=== PATIENT | male | born 1945 | race Caucasian/White ===

== ENCOUNTER 2018-03-11 12:41 | Emergency (ER) | payer OTHER ==
[~2018-03-11] VITALS: Ht 180.3 cm; Wt 79.8 kg
[~2018-03-11 12:41] MED LIST: AMLODIPINE BESY10 MG PO; CLOPIDOGREL75 MG PO; LISINOPRIL-HCT1 EACH PO; METOPROLOL SUC100 MG PO; TIZANIDINE HCL4 MG PO
[2018-03-11] MEDS ORDERED: DILTIAZEM HCL 100 ML IV STA (13:02)
[2018-03-11] MEDS ORDERED: DILTIAZEM HCL 5 MG/ML 5 ML VIAL IV ONE (13:15)
[2018-03-11 13:26] LABS: BASOPHILS % 0.4 % (0.0-1.0); EOSINOPHILS # (AUTO) 0.1 (0.0-0.4); EOSINOPHILS % 1.8 % (0.0-6.0); HEMATOCRIT 51.8 % (38.2-49.6); HEMOGLOBIN 17.8 g/dL (14.0-18.0); LYMPHOCYTES # (AUTO) 2.1 (1.0-3.2); LYMPHOCYTES % 37.8 % (18.0-39.1); MEAN CORPUSCULAR HEMOGLOBIN 35.7 pg (28-32); MEAN CORPUSCULAR HGB CONC 34.4 g/dL (31-35); MEAN CORPUSCULAR VOLUME 103.8 fL (81-99); MONOCYTES # (AUTO) 0.5 (0.2-0.8); MONOCYTES % 9.6 % (4.4-11.3); NEUTROPHILS # (AUTO) 2.7 (2.1-6.9); NEUTROPHILS % 50.2 % (38.7-80.0); PLATELET COUNT 179 x10e3/uL (140-360); RED BLOOD COUNT 4.99 x10e6/uL (4.3-5.7); RED CELL DISTRIBUTION WIDTH 13.5 % (11.7-14.4)
[2018-03-11] MEDS ORDERED: DILTIAZEM HCL IV SOLN 125 MG in SODIUM CHLORIDE 0.9% 100 ML IV SCH (13:30)
[2018-03-11 13:41] LABS: INR 0.96; PROTHROMBIN TIME 13.7 seconds (11.9-14.5)
[2018-03-11 13:42] LABS: PARTIAL THROMBOPLASTIN TIME 28.8 seconds (23.8-35.5)
[2018-03-11] MEDS ORDERED: METOPROLOL SUCCINATE 25 MG TAB XL PO SCH (13:45)
[2018-03-11 13:47] LABS: ALBUMIN 3.8 g/dL (3.5-5.0); ALBUMIN/GLOBULIN RATIO 1.4 (0.8-2.0); ANION GAP 16.2 mmol/L (8-16); CALCIUM 9.3 mg/dL (8.4-10.2); CREATININE, SERUM 1.24 mg/dL (0.72-1.25); POTASSIUM 4.2 mmol/L (3.5-5.1)
[2018-03-11 14:08] LABS: CREATINE KINASE MB 2.2 ng/mL (0-5.0); THYROID STIMULATING HORMONE 0.584 uIU/mL (0.350-4.940)
--- NOTE | 2018-03-11 14:18 | Consultation ---
DATE OF CONSULTATION: March 11, 2018 CARDIOLOGY CONSULTATION REASON FOR CONSULTATION: Atrial fibrillation. HISTORY OF PRESENT ILLNESS: Mr. Bustillo is a pleasant 73-year-old man with a history of polycythemia, smoking half a pack per day for over 50 years, reportedly not interested in quitting when asked, history of hypertension, history of leg discomfort, worse with ambulation and relieved by rest limiting moderate exercise, most pronounced to the left more than right lower extremity with no described wounds, presents to the emergency department with atrial fibrillation and rapid ventricular response. Denies chest pain, shortness of breath, lightheadedness, syncope, or other complaints. This was incidentally found on review in the clinic in the past. REVIEW OF SYSTEMS: A 12-system review is negative except for as noted above. ALLERGIES: CODEINE REPORTED. 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 SOCIAL HISTORY: Active smoker for 50 years of half pack a day. Denies drug use. Occasional alcohol use. FAMILY HISTORY: Noncontributory. PHYSICAL EXAMINATION VITALS: Temperature 98.1, heart rate initially 143 and now down to the 80s and atrial fibrillation on telemetry, respiratory rate 20, blood pressure 132/86 and initially was 140/100, O2 sat 96% on room air. GENERAL: In no acute distress. Alert. NECK: No JVD. CHEST: Clear to auscultation. CARDIOVASCULAR: Irregularly irregular rate and rhythm. Normal S1 and S2. No S3 or S4. No murmurs. No rubs. ABDOMEN: Soft and nontender. EXTREMITIES: No edema. Decreased pulses to bilateral dorsalis pedis and posterior tibials. MEDICATIONS: Reviewed. The patient received a bolus of 20 mg IV diltiazem upon arrival to the ER with improvement in his rate control. White blood cells 5.4, hemoglobin 17.8 and platelets 179,000. Chemistries currently pending. Chest x-ray with no acute cardiopulmonary disease. EKG shows atrial fibrillation with rapid ventricular response, possible anterior infarct, age undetermined, left axis deviation. ASSESSMENT 1. Atrial fibrillation with rapid ventricular response, new diagnosis. 2. Hypertension. 3. Active smoker. 4. Intermittent claudication affecting left more than right lower extremity. 5. Erythrocytosis. PLAN: Discussed indications, alternatives, risks, and benefits for management of thromboembolus with anticoagulation, vitamin K, antagonist versus new oral anticoagulants were discussed, including the alternatives and differences likely of angina with Eliquis discussed, and availability of Pradaxa as well as warfarin discussed. The patient agrees with opting for Eliquis at this point as an initial strategy in addition to initiating rate control strategy with beta renzo. His preference for further outpatient workup is taken into account. We have arranged for outpatient followup early next week. Further testing to be performed in the clinic. Job#: [id number] DANIEL
--- NOTE | 2018-03-11 14:18 | Diagnostic Imaging Report ---
EXAM: XR CHEST 2 VIEWS DATE: 03/11/2018 1:00 PM INDICATION: afib COMPARISON: None FINDINGS: Lines and Tubes: None Heart and Mediastinum: No acute cardiomediastinal findings. Lungs and Pleura: No significant pleural effusion, pneumothorax, or focal consolidation. Minimal opacities in the lung bases statistically represent atelectasis, however, infectious process could have a similar appearance. Bones and Soft Tissues: No acute findings. IMPRESSION: 1. No acute cardiopulmonary findings. Signed by: Dr. Timbo Claire MD on 03/11/2018 2:14 PM
[2018-03-11 14:31] LABS: BILIRUBIN,URINE 1+ (NEGATIVE); CLARITY,URINE HAZY (CLEAR); COLOR,URINE YELLOW (YELLOW); KETONES,URINE NEGATIVE (NEGATIVE); LEUKOCYTE ESTERASE ,URINE NEGATIVE (NEGATIVE); NITRITE,URINE NEGATIVE (NEGATIVE); PROTEIN,URINE DIPSTICK TRACE (NEGATIVE); URINE UROBILINOGEN 0.2 mg/dL (0.2 - 1)
[2018-03-11 14:37] LABS: AMPHETAMINES SCREEN,URINE NEGATIVE (NEGATIVE); BENZODIAZEPINES SCREEN,URINE NEGATIVE (NEGATIVE); PHENCYCLIDINE SCREEN,URINE NEGATIVE (NEGATIVE)
[2018-03-11 14:52] LABS: AMORPHOUS SEDIMENT,URINE FEW (FEW); BACTERIA,URINE MODERATE /HPF; EPITHELIAL CELLS,URINE RARE /LPF; MUCUS,URINE MANY (RARE); RBC,URINE 0-5 /HPF (0-5)
[2018-03-11 15:01] VITALS: BP 139/88
[2018-03-11] MEDS ORDERED: APIXABAN 5 MG TABLET PO SCH (17:00)
== END 2018-03-11 15:20 | disposition home or self-care (01) ==
LOC: ER 12:41
DX: I48.91 Unspecified atrial fibrillation (principal); I10 Essential (primary) hypertension; I73.9 Peripheral vascular disease, unspecified; F17.210 Nicotine dependence, cigarettes, uncomplicated
CPT/HCPCS: 36415; 71046; 80053; 80307; 81001; 82550; 82553; 84443; 84484; 85025; 85610; 85730; 93005; 99284; J7050

== ENCOUNTER → 2018-03-23 | Outpatient (CLI) | payer OTHER ==
[~2018-03-23] MED LIST changes: +REGADENOSON 0.4 MG/5 ML SYR IV ONE
--- NOTE | 2018-03-23 18:58 | Cardiology Report ---
DATE OF STUDY: March 23, 2018 MYOCARDIAL PERFUSION LEXISCAN STRESS TEST PROCEDURE INDICATION: Abnormal EKG, chest pain and atrial fibrillation. INTERPRETING AND SUPERVISING PHYSICIAN: Tao Mejia MD, interventional cardiology. INTERPRETATION: At rest, heart rate was 105. Blood pressure 133/95. Resting EKG shows atrial fibrillation with left axis deviation. After Lexiscan was administered, the heart rate leila to 150 beats per minute and blood pressure increased to 158/90. Atrial fibrillation persisted throughout stress and recovery. No significant ST abnormalities were noted. No other arrhythmias were noted. Myocardial perfusion reveals normal rest and stress perfusion. Gated images demonstrated low normal left ventricular systolic function with left ventricular ejection fraction more than 50% by visual estimate and normal regional wall motion. CONCLUSION 1. Normal hemodynamic response to Lexiscan stress. 2. Normal electrocardiographic response to Lexiscan stress. 3. Normal myocardial perfusion at rest and stress. 4. Preserved left ventricular systolic function with LVEF of 50%. Job#: [id number]
== END ==
LOC: NM 09:38
PROVIDERS: ATTEND Internal Medicine Cardiovascular Disease
DX: R07.9 Chest pain, unspecified (principal); I27.9 Pulmonary heart disease, unspecified; I48.0 Paroxysmal atrial fibrillation
CPT/HCPCS: 78452; 93017; A9502; J2785

== ENCOUNTER → 2018-06-08 | Day surgery (SDC) | payer MEDICARE ==
[2018-06-07 11:34] LABS: BASOPHILS % 0.6 % (0.0-1.0); EOSINOPHILS # (AUTO) 0.1 (0.0-0.4); EOSINOPHILS % 1.8 % (0.0-6.0); HEMATOCRIT 53.8 % (38.2-49.6); HEMOGLOBIN 19.3 g/dL (14.0-18.0); LYMPHOCYTES # (AUTO) 2.5 (1.0-3.2); LYMPHOCYTES % 48.3 % (18.0-39.1); MEAN CORPUSCULAR HEMOGLOBIN 36.3 pg (28-32); MEAN CORPUSCULAR HGB CONC 35.9 g/dL (31-35); MEAN CORPUSCULAR VOLUME 101.3 fL (81-99); MONOCYTES # (AUTO) 0.6 (0.2-0.8); MONOCYTES % 11.2 % (4.4-11.3); NEUTROPHILS # (AUTO) 1.9 (2.1-6.9); NEUTROPHILS % 37.9 % (38.7-80.0); PLATELET COUNT 153 x10e3/uL (140-360); RED BLOOD COUNT 5.31 x10e6/uL (4.3-5.7); RED CELL DISTRIBUTION WIDTH 13.8 % (11.7-14.4)
[2018-06-07 11:54] LABS: INR 0.9; PARTIAL THROMBOPLASTIN TIME 27.9 seconds (23.8-35.5)
[2018-06-07 12:00] LABS: ALBUMIN 3.5 g/dL (3.5-5.0); ANION GAP 17.1 mmol/L (8-16); CALCIUM 10.6 mg/dL (8.4-10.2); CHOL/HDL RATIO 3.2 (3.9-4.7); CREATININE, SERUM 1.42 mg/dL (0.72-1.25); POTASSIUM 4.1 mmol/L (3.5-5.1)
[~2018-06-08] VITALS: Ht 180.3 cm; Wt 74.8 kg
[2018-06-08] VITALS (22 sets, daily range): BP systolic 119–183; BP diastolic 81–111
[~2018-06-08] MED LIST changes: +ASPIRIN 325 MG TAB ONE; +ATROPINE SULFATE 0.1 MG/ML 10ML SYR ONE; +CLOPIDOGREL BISULFATE 75 MG TAB ONE; +ELIQUIS PO; +FENTANYL CITRATE/PF 100MCG/2 ML INJ ONE; +FUROSEMIDE40 MG PO; +HEPARIN SOD (PORCINE) 1000 UNIT/ML 30ML ONE; +HEPARIN SOD/SOD CHLORIDE 2,000 ML ONE; +HYDRALAZINE HCL 20 MG/ML VIAL ONE; +IOPAMIDOL 300MG/ML 100 ML INFUS..BTL IV ONE; +LIDOCAINE HCL 2% LOCAL 20 ML VIAL ONE; +LISINOPRIL10 MG PO; +METOPROLOL TART50 MG PO; +METOPROLOL TARTRATE 50 MG TAB PO ONE; +MIDAZOLAM HCL 2 MG/2 ML VIAL ONE; +MORPHINE SULFATE INJ 4 MG/ML INJ 1ML ONE; +NITROGLYCERIN/D5W 200 MCG/ML 250 ML ONE; +PROTAMINE SULFATE 10 MG/ML 5 ML VIAL ONE; -REGADENOSON 0.4 MG/5 ML SYR IV ONE; +SODIUM CHLORIDE 0.9% 1000ML 1,000 ML ONE; +TRAZODONE HCL50 MG PO; +VERAPAMIL HCL 2.5 MG/ML 2 ML VIAL ONE
--- OUTSIDE RECORDS SUMMARY | 2018-06-08 07:41 | XMS REPORT ---
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 Allergies, Adverse Reactions, Alerts This patient has no known allergies or adverse reactions. Medications This patient has no known medications. Results Test Description Test Time Test Comments Text Results Atomic Results Result Comments Stress Test - Treadmill ONLY 2018-03-23 18:33:00 [place] [address] Patient Name : MELINDA CHRISTOPHER MR #: [id number] : 1945 Age/Sex: 73/M Adm Physician : TAO DOBSON MD Admit Date : Location : [place] Room/Bed : REPORT: Cardiology Report DATE OF STUDY: March 23, 2018 MYOCARDIAL PERFUSION LEXISCAN STRESS TEST PROCEDURE INDICATION: Abnormal EKG, chest pain and atrial fibrillation. INTERPRETING AND SUPERVISING PHYSICIAN: Tao Mejia MD, interventional cardiology. INTERPRETATION: At rest, heart rate was 105. Blood pressure 133/95. Resting EKG shows atrial fibrillation with left axis deviation. After Lexiscan was administered, the heart rate leila to 150 beats per minute and blood pressure increased to 158/90. Atrial fibrillation persisted throughout stress and recovery. No significant ST abnormalities were noted. No other arrhythmias were noted. Myocardial perfusion reveals normal rest and stress perfusion. Gated images demonstrated low normal left ventricular systolic function with left ventricular ejection fraction more than 50% by visual estimate and normal regional wall motion. CONCLUSION 1. Normal hemodynamic response to Lexiscan stress. 2. Normal electrocardiographic response to Lexiscan stress. 3. Normal myocardial perfusion at rest and stress. 4. Preserved left ventricular systolic function with LVEF of 50%. Job#: [id number] Signature Date Dictated By: TAO COLES MD Transcribed By: EDS on 03/23/18 <Electronically signed by TAO COLES MD><<Signature on File>>03/24/18 3927 COPY TO: CHEST 2 VIEWS 2018-03-11 14:13:00 [place] [address] Patient Name: MELINDA CHRISTOPHER MR #: [id number] : 1945 Age/Sex: 73/M Req #: [id number] Adm Physician: Ordered by: KISHAN YAÑEZ MD Report #: [id number] Location: ER Room/Bed: Procedure: [id number] DX/CHEST 2 VIEWS Exam Date: 03/11/18 Exam Time: 1345 REPORT STATUS: Signed EXAM: XR CHEST 2 VIEWS DATE: 03/11/2018 1:00 PM I NDICATION: afib COMPARISON: None FINDINGS: Lines and Tubes: None Heart and Mediastinum: No acute cardiomediastinal findings. Lungs and Pleura: No significant pleural effusion, pneumothorax, or focal consolidation. Minimal opacities in the lung bases statistically represent atelectasis, however, infectious process could have a similar appearance. Bones and Soft Tissues: No acute findings. IMPRESSION: 1. No acute cardiopulmonary findings. Signed by: Dr. Tk Claire MD on 03/11/2018 2:14 PM Dictated By: TK CLAIRE MD 1414 Transcribed By: FREDIS on 03/11/181413 COPY TO: KISHAN YAÑEZ MD
--- NOTE | 2018-06-08 12:30 | NUR ---
Bedside report received from Ketty Crowell RN. Alert oriented and appropriate, PERRLA, respirations even and unlabored to room air. Pedal pulses- Right PT 2+, Left PT doppler, Kiel. DP 2+, cap fill brisk < 3 sec. Skin warm and dry, IV 20g to left hand healthy. VSS, patient is in Atrial Fibrillation. Hydralazine 10mg IV given for elevated blood pressure of 183/[address] Mejia's order.
--- NOTE | 2018-06-08 13:00 | NUR ---
C/O chronic back pain 09/02. VSS, no s&s of bleeding noted. Morphine 4mg IV given per Dr. Mejia's order.
--- NOTE | 2018-06-08 13:15 | NUR ---
ACT 221, will continue to monitor.
--- NOTE | 2018-06-08 13:35 | NUR ---
Continuous ooze noted from right femoral sheath, VSS, no change in pedal pulses. Notified Dr. Mejia, order rec'd to give Protamine 25mg IV now. Will continue to monitor.
--- NOTE | 2018-06-08 14:15 | NUR ---
ACT 135, Dr. Mejia notified, ok to remove sheath and hold manual pressure.
--- NOTE | 2018-06-08 14:17 | NUR ---
BP 169/114, Hydralazine 10mg IV given as ordered.
--- NOTE | 2018-06-08 14:25 | NUR ---
Right femoral artery sheath pulled per protocol, manual pressure held x20 minutes.
--- NOTE | 2018-06-08 14:45 | NUR ---
Manual pressure held x20 minutes, hemostasis obtained. Report given to Moe Colmenares RN.
--- NOTE | 2018-06-10 10:24 | Operative Report ---
DATE OF PROCEDURE: PROCEDURES PERFORMED 1. Catheter placement in the aorta and abdominal aortogram. 2. Selective lower extremity angiography, bilateral. 3. Third-order catheter placement from right common femoral artery to left common femoral artery. 4. Additional 3rd-order catheter placement from right common femoral artery to left popliteal artery. 5. Left superficial femoral artery and popliteal drug-eluting balloon angioplasty. 6. Left superficial femoral artery ostial stent with a 6.0 x 120 LifeStent. 7. CSI atherectomy with 1.5 Solid [place] of the left superficial femoral artery. 8. Left external iliac artery drug-eluting balloon percutaneous transluminal angioplasty. PROCEDURE COMPLICATIONS: None. ESTIMATED BLOOD LOSS: Less than 15 mL. PROCEDURE SUMMARY: After consent was obtained, the patient was prepped and draped in a sterile fashion. The right femoral site was locally infiltrated with 2% lidocaine. With the micropuncture kit, access was obtained to the right common femoral artery, and an Omni Flush catheter was positioned in the distal descending abdominal aorta confirming abdominal and iliac findings. Additional selective lower extremity angiography was performed to each bilateral lower extremity from the left common femoral artery and left popliteal artery as well as from the right external iliac artery catheter positions. Angiography was selectively performed to each bilateral lower extremity. After confirmation of anatomic findings as described below, it was decided to proceed with intervention, as will be described in the following paragraph. ANGIOGRAPHIC FINDINGS: The infrarenal abdominal aorta has luminal irregularities and patent renal arteries with iliac vessels with moderate to severe disease. The right common iliac artery has 30% stenosis. The left common iliac artery has 40% stenosis. The right common femoral artery has 50% stenosis. The left external iliac artery has 70% concentric stenosis which was treated as will be described below with TRUCK DRIVER FLATBED using drug-eluting balloon. The left common femoral artery has 50% stenosis. The right femoral artery has a patent stent with 70% in-stenosis restenosis. The right anterior tibial is patent. The right peroneal artery is 100% occluded. The right posterior tibial is patent. The left SFA has 80% ostial, 70% mid in-stent restenosis and 99% distal stenosis. There are a patent left anterior tibial, left TP trunk, left peroneal artery and an occluded posterior tibial throughout. INTERVENTION PROCEDURE: After crossing the areas of stenosis of the SFA and wire positioned in the distal anterior tibial, maintaining an ACT of over 250 and with aspirin and Plavix preloading, predilatation was performed of the areas of stenosis after initial CSI atherectomy using a 1.5 Solid [place] at 60,000 and 90,000 r.p.m. passes. Predilatation was performed with a 4.0 balloon followed by serial Lutonix drug-eluting balloon inflations of 5.0 x 220 and 6.0 x 220 to treat the full extent of the SFA. At the end of this procedure, it was noted that complex dissection of the ostial SFA was observed for which a 6.0 x 120 LifeStent self-expanding stent was deployed successfully treating this area with no residual dissections or perforations, 0% residual stenosis and JENELLE-3 flow across the target lesion. The left external iliac artery was treated with a 7.0 x 60 drug-eluting balloon Lutonix to 9 mm of pressure with excellent angiographic results, less than 30% stenosis. No flow-limiting dissection, no perforation, and JENELLE-3 flow. CONCLUSIONS: Left external iliac artery drug-eluting balloon TRUCK DRIVER FLATBED with 7.0 x 60 Lutonix balloon and left SFA CSI atherectomy and drug-eluting balloon TRUCK DRIVER FLATBED of left SFA into proximal popliteal. Ostial stent of the left SFA with 6.0 x 120 LifeStent. RECOMMENDATIONS: Staged intervention to the right lower extremity at a later date. Aspirin and Plavix. Job#: [id number]
== END | disposition home or self-care (01) ==
LOC: CATH LAB 07:39
PROVIDERS: ATTEND Internal Medicine Cardiovascular Disease
DX: I70.213 Atherosclerosis of native arteries of extremities with intermittent claudication, bilateral legs (principal); I70.92 Chronic total occlusion of artery of the extremities; I48.0 Paroxysmal atrial fibrillation; I20.9 Angina pectoris, unspecified; I11.0 Hypertensive heart disease with heart failure; E78.5 Hyperlipidemia, unspecified; Z95.820 Peripheral vascular angioplasty status with implants and grafts; Z72.0 Tobacco use; Z88.6 Allergy status to analgesic agent; Z01.810 Encounter for preprocedural cardiovascular examination; Z01.812 Encounter for preprocedural laboratory examination; Z79.02 Long term (current) use of antithrombotics/antiplatelets; Z79.82 Long term (current) use of aspirin
CPT/HCPCS: 36415; 37220; 37227; 75625; 75716; 80053; 80061; 83036; 85025; 85610; 85730; 93005; C1724; C1725; C1769 ×2; C1876; C1887; C2623 ×3; J0360; J1644; J2001; J2250; J2270; J2720; J7030; Q9967; 36247; 37186; 37222

== ENCOUNTER → 2018-12-02 | Outpatient (CLI) | payer MEDICARE ==
[~2018-12-02] MED LIST changes: -ASPIRIN 325 MG TAB ONE; -ATROPINE SULFATE 0.1 MG/ML 10ML SYR ONE; -CLOPIDOGREL BISULFATE 75 MG TAB ONE; -FENTANYL CITRATE/PF 100MCG/2 ML INJ ONE; -HEPARIN SOD (PORCINE) 1000 UNIT/ML 30ML ONE; -HEPARIN SOD/SOD CHLORIDE 2,000 ML ONE; -HYDRALAZINE HCL 20 MG/ML VIAL ONE; -IOPAMIDOL 300MG/ML 100 ML INFUS..BTL IV ONE; -LIDOCAINE HCL 2% LOCAL 20 ML VIAL ONE; -METOPROLOL TARTRATE 50 MG TAB PO ONE; -MIDAZOLAM HCL 2 MG/2 ML VIAL ONE; -MORPHINE SULFATE INJ 4 MG/ML INJ 1ML ONE; -NITROGLYCERIN/D5W 200 MCG/ML 250 ML ONE; -PROTAMINE SULFATE 10 MG/ML 5 ML VIAL ONE; -SODIUM CHLORIDE 0.9% 1000ML 1,000 ML ONE; -VERAPAMIL HCL 2.5 MG/ML 2 ML VIAL ONE
--- NOTE | 2018-12-02 09:50 | Diagnostic Imaging Report ---
EXAMINATION: CHEST 2 VIEWS INDICATION: COPD, shortness of breath COMPARISON: Chest radiograph of 03/11/2018 FINDINGS: LINES/TUBES:None LUNGS:The lungs are hyperinflated. No focal consolidation or pulmonary edema. PLEURA:No pleural effusion or pneumothorax. MEDIASTINUM:The cardiomediastinal silhouette appears normal in size and shape. Extensive atherosclerotic calcifications of the thoracic aorta. BONES/SOFT TISSUES:No acute osseous injury. Degenerative changes of the visualized spine. ABDOMEN:No free air under the diaphragm. IMPRESSION: No focal pneumonia or pulmonary edema. Signed by: Nilsa Bryant MD on 12/02/2018 9:47 AM
== END ==
LOC: CARD 08:45
PROVIDERS: ATTEND Family Medicine
DX: J44.1 Chronic obstructive pulmonary disease with (acute) exacerbation (principal); I70.208 Unspecified atherosclerosis of native arteries of extremities, other extremity
CPT/HCPCS: 71046; 93925

== ENCOUNTER → 2018-12-06 | Outpatient (CLI) | payer MEDICARE ==
[~2018-12-06] MED LIST changes: +ALBUTEROL SULF 0.083% NEB SOLN 3 ML NEB ONE
--- NOTE | 2018-12-07 16:22 | Pulmonary Function Test ---
DATE OF STUDY: REFERRING PHYSICIAN: Patient of Dr. Pawan Bae. FINDINGS: Restrictive spirometry. Forced vital capacity 2.97 L, 65% of predicted. FEV1 2.08 L, 62%. FEV1/FVC ratio 70%. IUK57-83 of 45%. There is no significant improvement following inhalation of bronchodilators. There is borderline improvement in the UFK64-03. Lung volumes are reduced. Total lung capacity 4.41 L, 60% of predicted. Diffusion capacity is moderately reduced, 21.26, 76% predicted. Findings consistent with restrictive pulmonary disease with questionable improvement in JFZ17-07 following inhalation dilators. Restriction may be secondary to morbid obesity, congestive heart failure, chest wall disease, neuromuscular disease, pleural disease, parenchymal pulmonary disease, diaphragmatic disease, chest wall disease. Clinical correlation required. MD LONNY Mojica/MODL /[id number]
== END ==
LOC: RESP 08:35
PROVIDERS: ATTEND Family Medicine
DX: J44.1 Chronic obstructive pulmonary disease with (acute) exacerbation (principal); I70.208 Unspecified atherosclerosis of native arteries of extremities, other extremity

== ENCOUNTER → 2019-11-15 | Day surgery (SDC) | payer MEDICARE, OTHER ==
[2019-11-10 11:29] LABS: BASOPHILS % 0.6 % (0.0-1.0); EOSINOPHILS # (AUTO) 0.2 (0.0-0.4); EOSINOPHILS % 3.6 % (0.0-6.0); HEMATOCRIT 50.8 % (38.2-49.6); HEMOGLOBIN 17.7 g/dL (14.0-18.0); LYMPHOCYTES # (AUTO) 2.9 (1.0-3.2); LYMPHOCYTES % 44.8 % (18.0-39.1); MEAN CORPUSCULAR HEMOGLOBIN 36.5 pg (28-32); MEAN CORPUSCULAR HGB CONC 34.8 g/dL (31-35); MEAN CORPUSCULAR VOLUME 104.7 fL (81-99); MONOCYTES # (AUTO) 0.9 (0.2-0.8); NEUTROPHILS # (AUTO) 2.4 (2.1-6.9); NEUTROPHILS % 36.8 % (38.7-80.0); PLATELET COUNT 170 x10e3/uL (140-360); RED BLOOD COUNT 4.85 x10e6/uL (4.3-5.7); RED CELL DISTRIBUTION WIDTH 13.3 % (11.7-14.4)
[2019-11-10 11:41] LABS: INR 1.11
[2019-11-10 11:51] LABS: ALBUMIN 3.8 g/dL (3.5-5.0); ALBUMIN/GLOBULIN RATIO 1.2 (0.8-2.0); ANION GAP 13.3 mmol/L (8-16); CALCIUM 10.8 mg/dL (8.4-10.2); CREATININE, SERUM 1.81 mg/dL (0.72-1.25); POTASSIUM 4.3 mmol/L (3.5-5.1)
[2019-11-10 14:40] LABS: CHOL/HDL RATIO 3.9 (3.9-4.7)
[~2019-11-15] VITALS: Ht 180.3 cm; Wt 70.3 kg
[2019-11-15] VITALS (12 sets, daily range): BP systolic 107–178; BP diastolic 50–91
[~2019-11-15] MED LIST changes: -ALBUTEROL SULF 0.083% NEB SOLN 3 ML NEB ONE; +ASPIRIN 325 MG TAB ONE; +CLOPIDOGREL BISULFATE 75 MG TAB ONE; +FENTANYL CITRATE/PF 100MCG/2 ML INJ ONE; +HEPARIN SOD (PORCINE) 1000 UNIT/ML 30ML ONE; +HEPARIN SOD/SOD CHLORIDE 2,000 ML ONE; +IOPAMIDOL 300MG/ML 100 ML INFUS..BTL IV ONE; +LIDOCAINE HCL 2% LOCAL 20 ML VIAL ONE; +MIDAZOLAM HCL 2 MG/2 ML VIAL ONE; +NITROGLYCERIN/D5W 200 MCG/ML 250 ML ONE; +SODIUM CHLORIDE 0.9% 1000ML 1,000 ML ONE
--- NOTE | 2019-11-15 08:30 | NUR ---
0830prepped and ready for le angio Dr Mejia rm #9 Report ahndoff to Ketty RN ds/rn
--- NOTE | 2019-11-15 10:00 | NUR ---
1000Received pt to room #9,bedside report received from Ketty MAHARAJ. Alert oriented and appropriate, PERRLA, respirations even and unlabored to room air. Pulses x4 extremities equal and strong. Pedal pulses PT/DP x4 left DP and marked. Cap fill brisk < 3 sec.Left groin site manual PP present.For dc at 2pm. Skin warm and dry integrity appears . IV 20g to left hand at 75cchr presents healthy w/o s/s of infiltration or complaint. Abdomen soft and supple. pt offered toileting, denies need to urinate or defecate. No personal affects with patient. No family Needs family Needs med Transport booked. Pt and family verbalizes understanding of POC. Currently w/o complaint of pain or need. ds/astrid
--- NOTE | 2019-11-15 10:43 | NUR ---
1043 notified house Supv. Mynor Pascual Attempting to obtain Auth Code [facility] [place] [facility] ([phone])/[facility] [phone], 2nd choice [facility] [phone] groin No gross issues pain pallor pressure or dysrhythmia. do/astrid
--- NOTE | 2019-11-15 11:37 | Operative Report ---
DATE OF PROCEDURE: SURGEON: Tao Cosme MD STUDY: Peripheral angiography and possible intervention. PROCEDURE INDICATION: Critical limb ischemia with life-limiting claudication affecting right more than left lower extremity and worsening symptoms in the setting of underlying known peripheral arterial disease. PROCEDURES PERFORMED: 1. Abdominal aortogram. 2. Selective lower extremity angiography, bilateral. 3. Catheter placement in the aorta. 4. Third-order catheter placement from left femoral artery to right femoral artery. 5. Manual pressure hemostasis. 6. Ultrasound-guided access. 7. Moderate sedation with fentanyl and Versed. PROCEDURE COMPLICATIONS: None. ESTIMATED BLOOD LOSS: Less than 15 mL. PROCEDURE SUMMARY: After consent was obtained, the patient was prepped and draped in sterile fashion. The left femoral site was locally infiltrated with 2% lidocaine and access was obtained using micropuncture kit and a short 6-Namibian sheath was placed ultrasound-guided access. An Omni Flush catheter was positioned in the abdominal aorta and angiography reveals a 70% to 80% stenosis of the left renal artery. The right renal artery was not fully well visualized, however, seems patent overall. Heavy calcifications noted across the spectrum of the vessels evaluated with infrarenal aorta and areas of less than 50% stenosis throughout. The right common iliac artery has 50% stenosis. The left common iliac artery has 60% stenosis. Both internal iliac arteries are patent. The right external iliac artery has less than 50% stenosis. The left external iliac artery has 60% stenosis. Additional selective angiography of both lower extremities was performed with the following findings. Once the catheter advancement to the femoral artery on the right, the following findings were noted. The right common femoral artery has 95% stenosis in the mid segment with heavy calcifications and eccentric morphology and distal 100% calcific occlusion. The profunda femoris and the proximal mid right femoral artery reconstitutes via collaterals. After short-segment, the right proximal femoral artery was again observed to be occluded 100% with additional calcific disease. Distal to this, there was reconstitution again and there was a stent which has 90% in-stent restenosis. The right popliteal artery has less than 50% stenosis. Three-vessel runoff via anterior tibial peroneal and posterior tibial are observed with 60% diffuse calcific disease across the lvroz-zce-cmep vessels. The left common femoral artery has 70% diffuse stenosis. The left profunda femoris artery was patent. The left SFA has two stents. The first stent has 60% in-stent restenosis. In between the two stents, there is 95% stenosis. The second stent was patent after which there was 90% stenosis of the distal left SFA. The left popliteal artery has 50% stenosis. There were three-vessel runoff with diffuse severe 60% to 70% disease across the left anterior tibial, left TP trunk, left peroneal artery, and left posterior tibial artery. CONCLUSION: Severe multivessel peripheral arterial disease. RECOMMEND: Evaluation for right femoral-popliteal bypass and possible right common femoral artery atherectomy as outpatient at a later date. Bedrest. IV fluid. MD DAYO Mayes/DAMIAN /[id number]
--- NOTE | 2019-11-15 12:00 | NUR ---
Dianne Zurita at [facility].Ambulance booked Pickup at 2pm [facility] ambulance for medical transport home s/p no fix, peripheral angio for claudication, Dr Mejia for f/o Surgical evaluation MD office to coordinate DC planning completed ds/rn
--- NOTE | 2019-11-15 14:00 | NUR ---
1400-[facility] Discharge Nursing Note- Pt meets DC criteria. Left groin assessed for s/s of complication and presence of hematoma. s/p ambulated to void in bathroom w/o incident. Skin warm, dry, no discolor, and pulses present. IV removed from left hand. Distal tip appears intact. VS WNL. Pt denies pain, sob, or need at this time. No Family at bedside. Medical transport to home via [facility] ambulance.Handoff completed to BLS team. Review of discharge paperwork and follow up instructions with pt verbalized understanding. Pt on stretcher transported to ED [place] w/o incident with DC paperwork in hand.Aware of importance of f/o care. back to baseline orientation. ds/rn
== END | disposition home or self-care (01) ==
LOC: CATH LAB 07:22
PROVIDERS: ATTEND Internal Medicine Cardiovascular Disease
DX: I70.213 Atherosclerosis of native arteries of extremities with intermittent claudication, bilateral legs (principal); Z95.820 Peripheral vascular angioplasty status with implants and grafts; I20.9 Angina pectoris, unspecified; I48.0 Paroxysmal atrial fibrillation; I10 Essential (primary) hypertension; E78.5 Hyperlipidemia, unspecified; F17.210 Nicotine dependence, cigarettes, uncomplicated; Z88.6 Allergy status to analgesic agent; Z01.812 Encounter for preprocedural laboratory examination; Z11.59 Encounter for screening for other viral diseases; Z79.02 Long term (current) use of antithrombotics/antiplatelets; Z79.82 Long term (current) use of aspirin
CPT/HCPCS: 36247; 36415; 75625; 76937; 80053; 80061; 85025; 85610; C1769 ×2; J1644; J2001; J2250; J3010; J7030; Q9967; U0002; 75630; 99152; 99153

== ENCOUNTER → 2020-07-30 | Outpatient (CLI) | payer MEDICARE ==
[~2020-07-30] MED LIST changes: -ASPIRIN 325 MG TAB ONE; -CLOPIDOGREL BISULFATE 75 MG TAB ONE; -FENTANYL CITRATE/PF 100MCG/2 ML INJ ONE; -HEPARIN SOD (PORCINE) 1000 UNIT/ML 30ML ONE; -HEPARIN SOD/SOD CHLORIDE 2,000 ML ONE; -IOPAMIDOL 300MG/ML 100 ML INFUS..BTL IV ONE; +IOPAMIDOL 370 MG/ML 200 ML INFUS..BTL INJ ONE; -LIDOCAINE HCL 2% LOCAL 20 ML VIAL ONE; -MIDAZOLAM HCL 2 MG/2 ML VIAL ONE; -NITROGLYCERIN/D5W 200 MCG/ML 250 ML ONE; +SODIUM CHLORIDE 0.9% 100 ML ONE; -SODIUM CHLORIDE 0.9% 1000ML 1,000 ML ONE; +SODIUM CHLORIDE 0.9% 250ML 500 ML ONE
[2020-07-30 16:25] LABS: CREATININE, SERUM 1.79 mg/dL (0.72-1.25)
== END ==
LOC: CARD 14:44
PROVIDERS: ATTEND Thoracic Surgery (Cardiothoracic Vascular Surgery)
DX: I73.9 Peripheral vascular disease, unspecified (principal)
CPT/HCPCS: 36415; 75635; 82565; 84520; 93922; 93925; J7050 ×2; Q9967

== ENCOUNTER → 2021-10-16 | Outpatient (CLI) | payer MEDICARE ==
[~2021-10-16] MED LIST changes: -IOPAMIDOL 370 MG/ML 200 ML INFUS..BTL INJ ONE; -SODIUM CHLORIDE 0.9% 100 ML ONE; -SODIUM CHLORIDE 0.9% 250ML 500 ML ONE
== END ==
LOC: DX 10:51
PROVIDERS: ATTEND Family Medicine
DX: R13.13 Dysphagia, pharyngeal phase (principal); Z93.1 Gastrostomy status
CPT/HCPCS: 74230

== ENCOUNTER 2022-06-09 12:47 | Inpatient (IN) | payer MEDICARE ==
[~2022-06-09] VITALS: Ht 180.3 cm; Wt 84.8 kg
[2022-06-09] VITALS (27 sets, daily range): BP systolic 76–120; BP diastolic 34–88
[~2022-06-09 12:47] MED LIST changes: +ALLOPURINOL100 MG PO; +AMIODARONE HCL200 MG PO; +ATORVASTATIN CA20 MG PO; +ELIQUIS2.5 MG PO; +ETOMIDATE 2 MG/ML 10 ML INJ IV ONE; +GENTLE LAXATIVE5 MG PO; +LANSOPRAZOLE30 MG PO; +LYRICA25 MG PO; +METOPROLOL TART25 MG PO; +MIDAZOLAM HCL 2 MG/2 ML VIAL ONE; +MOMETASONE FURO15 G2 EXT; +TRAZODONE HCL150 MG PO; +VECURONIUM BROMIDE FOR INJ 20 MG VIAL ONE; +WATER STERILE 10 ML VIAL ONE
[2022-06-09 14:51] LABS: EOSINOPHILS % 0.1 % (0.0-6.0); HEMATOCRIT 28.3 % (38.2-49.6); HEMOGLOBIN 9.6 g/dL (14.0-18.0); LYMPHOCYTES # (AUTO) 0.7 (1.0-3.2); LYMPHOCYTES % 9.3 % (18.0-39.1); MEAN CORPUSCULAR HEMOGLOBIN 31.6 pg (28-32); MEAN CORPUSCULAR HGB CONC 33.9 g/dL (31-35); MEAN CORPUSCULAR VOLUME 93.1 fL (81-99); MONOCYTES # (AUTO) 0.7 (0.2-0.8); MONOCYTES % 9.2 % (4.4-11.3); NEUTROPHILS # (AUTO) 6.2 (2.1-6.9); PLATELET COUNT 149 x10e3/uL (140-360); RED BLOOD COUNT 3.04 x10e6/uL (4.3-5.7); RED CELL DISTRIBUTION WIDTH 14.6 % (11.7-14.4)
[2022-06-09 15:18] LABS: ALANINE AMINOTRANSFERASE 24 IU/L (0-55); ALBUMIN 3.6 g/dL (3.5-5.0); ALKALINE PHOSPHATASE 113 IU/L (40-150); ANION GAP 17.3 mmol/L (8-16); CALCIUM 10.5 mg/dL (8.4-10.2); CARBON DIOXIDE 29 mmol/L (22-29); CHLORIDE 84 mmol/L (98-107); CREATININE, SERUM 4.34 mg/dL (0.72-1.25); GLUCOSE 91 mg/dL (74-118); SODIUM 125 mmol/L (136-145)
[2022-06-09 15:20] LABS: BLOOD UREA NITROGEN 132 mg/dL (7-26); POTASSIUM 5.3 mmol/L (3.5-5.1)
[2022-06-09] MEDS ORDERED: SODIUM CHLORIDE 0.9% 500ML 500 ML IV STA ×2 (15:23→17:26)
[2022-06-09] MEDS ORDERED: SOD POLYSTYRENE SULFONATE SUSP 15 GM/60 ML BTL PO ONE (15:30)
[2022-06-09] MEDS ORDERED: ASPIRIN 81 MG CHEW TAB PO ONE (15:30)
[2022-06-09 16:01] LABS: CREATINE KINASE MB 12.3 ng/mL (0-5.0)
[2022-06-09 16:19] LABS: INR 1.14; PROTHROMBIN TIME 14.8 seconds (11.9-14.5)
[2022-06-09] MEDS ORDERED: ATROPINE SULFATE 0.1 MG/ML 10ML SYR IV ONE (16:30)
[2022-06-09] MEDS ORDERED: SODIUM CHLORIDE 0.9% 1000ML 1,000 ML ONE (19:46)
[2022-06-09] MEDS ORDERED: FENTANYL 2000MCG/NS 250 250 ML IV PRN (20:00)
[2022-06-09 20:23] LABS: ABG PH 7.26 (7.35-7.45)
[2022-06-09 20:26] LABS: ABG HCO3 32 mmol/L (22-26); ABG PCO2 72 mmHg (35-45); ABG PO2 69 mmHg (80-105); ABG TCO2 34
[2022-06-09] MEDS: PROPOFOL IV EMULSION 10MG/ML 100 ML IV PRN (20:29)
[2022-06-09] MEDS: NOREPINEPHRINE 8 MG/D5W 250 ML 250 ML IV SCH (20:32)
[2022-06-09 20:53] LABS: ABG PCO2 46 mmHg (35-45); ABG PH 7.42 (7.35-7.45)
[2022-06-09 20:54] LABS: ABG HCO3 30 mmol/L (22-26); ABG PO2 111 mmHg (80-105); ABG TCO2 31
[2022-06-09] MEDS ORDERED: SODIUM CHLORIDE 0.9% 1000ML 1,000 ML IV ONE (21:00)
[2022-06-09] MEDS ORDERED: ATORVASTATIN 20 MG TAB PO SCH (21:00)
[2022-06-09] MEDS: ATORVASTATIN 40 MG TAB PO SCH (21:00)
[2022-06-10] VITALS (91 sets, daily range): BP systolic 87–135; BP diastolic 34–100
[2022-06-10 00:22] LABS: AMORPHOUS SEDIMENT,URINE MANY (FEW); BACTERIA,URINE FEW /HPF; CLARITY,URINE CLOUDY (CLEAR); COLOR,URINE YELLOW (YELLOW); EPITHELIAL CELLS,URINE RARE /LPF; KETONES,URINE NEGATIVE (NEGATIVE); LEUKOCYTE ESTERASE ,URINE NEGATIVE (NEGATIVE); NITRITE,URINE NEGATIVE (NEGATIVE); PROTEIN,URINE DIPSTICK 1+ (NEGATIVE); RBC,URINE 0-5 /HPF (0-5); URINE UROBILINOGEN 0.2 mg/dL (0.2 - 1); WBC,URINE (MAN) 0-5 /HPF (0-5)
[2022-06-10 06:22] LABS: BASOPHILS % 0.2 % (0.0-1.0); EOSINOPHILS # (AUTO) 0.1 (0.0-0.4); HEMATOCRIT 28.6 % (38.2-49.6); HEMOGLOBIN 10.1 g/dL (14.0-18.0); LYMPHOCYTES # (AUTO) 0.5 (1.0-3.2); MEAN CORPUSCULAR HEMOGLOBIN 31.5 pg (28-32); MEAN CORPUSCULAR HGB CONC 35.3 g/dL (31-35); MEAN CORPUSCULAR VOLUME 89.1 fL (81-99); MONOCYTES # (AUTO) 1.2 (0.2-0.8); MONOCYTES % 9.9 % (4.4-11.3); NEUTROPHILS # (AUTO) 10.4 (2.1-6.9); NEUTROPHILS % 84.3 % (38.7-80.0); PLATELET COUNT 226 x10e3/uL (140-360); RED BLOOD COUNT 3.21 x10e6/uL (4.3-5.7); RED CELL DISTRIBUTION WIDTH 14.2 % (11.7-14.4)
[2022-06-10 06:49] LABS: ANION GAP 16.9 mmol/L (8-16); CALCIUM 9.5 mg/dL (8.4-10.2); CARBON DIOXIDE 24 mmol/L (22-29); CHLORIDE 91 mmol/L (98-107); CREATININE, SERUM 4.07 mg/dL (0.72-1.25); GLUCOSE 70 mg/dL (74-118); POTASSIUM 4.9 mmol/L (3.5-5.1); SODIUM 127 mmol/L (136-145)
[2022-06-10 06:52] LABS: BLOOD UREA NITROGEN 137 mg/dL (7-26)
[2022-06-10 07:00] LABS: CREATINE KINASE MB 5.4 ng/mL (0-5.0)
[2022-06-10] MEDS: AMIODARONE HCL 200 MG TAB PO SCH (08:53)
[2022-06-10] MEDS: ALLOPURINOL 100 MG TAB PO SCH (08:53)
[2022-06-10] MEDS ORDERED: SODIUM CHLORIDE 0.9% 1000ML 1,000 ML IV ONE (09:00)
[2022-06-10] MEDS: NOREPINEPHRINE 8 MG/D5W 250 ML 250 ML IV SCH ×2 (11:40→21:09)
[2022-06-10 12:10] LABS: CREATINE KINASE MB 3.2 ng/mL (0-5.0)
[2022-06-10] MEDS ORDERED: LIDOCAINE HCL 4% 50 ML BTL ONE (12:57)
[2022-06-10] MEDS ORDERED: MIDAZOLAM HCL 2 MG/2 ML VIAL IV STA (13:20)
[2022-06-10] MEDS: MIDAZOLAM HCL 5 MG/ML VIAL ONE ×2 (13:27→13:31)
[2022-06-10] MEDS: APIXAB 2.5 MG TABLET PO SCH ×2 (15:08→18:04)
[2022-06-10] MEDS: ASPIRIN 81 MG CHEW TAB PO SCH (15:08)
[2022-06-10] MEDS ORDERED: LACTATED RINGER'S 1,000 ML INJ ONE (17:15)
[2022-06-10] MEDS: PROPOFOL IV EMULSION 10MG/ML 100 ML IV PRN (19:18)
[2022-06-10] MEDS: ATORVASTATIN 40 MG TAB PO SCH (21:19)
[2022-06-10 22:21] LABS: CREATININE,URINE RANDOM 39.69 mg/dL (63-166); TOTAL PROTEIN, URINE 11.3 mg/dL (1-14)
[2022-06-11] VITALS (52 sets, daily range): BP systolic 69–141; BP diastolic 33–57
[2022-06-11] MEDS: PROPOFOL IV EMULSION 10MG/ML 100 ML IV PRN (06:46)
[2022-06-11 06:48] LABS: BASOPHILS % 0.2 % (0.0-1.0); HEMOGLOBIN 7.5 g/dL (14.0-18.0); LYMPHOCYTES # (AUTO) 0.8 (1.0-3.2); MEAN CORPUSCULAR HEMOGLOBIN 33.5 pg (28-32); MEAN CORPUSCULAR HGB CONC 36.2 g/dL (31-35); MEAN CORPUSCULAR VOLUME 92.4 fL (81-99); MONOCYTES # (AUTO) 1.1 (0.2-0.8); MONOCYTES % 8.1 % (4.4-11.3); NEUTROPHILS # (AUTO) 11.2 (2.1-6.9); NEUTROPHILS % 85.2 % (38.7-80.0); RED BLOOD COUNT 2.24 x10e6/uL (4.3-5.7); RED CELL DISTRIBUTION WIDTH 15.1 % (11.7-14.4)
[2022-06-11 07:18] LABS: HEMATOCRIT 20.7 % (38.2-49.6); PLATELET COUNT 137 x10e3/uL (140-360)
[2022-06-11 07:28] LABS: ALANINE AMINOTRANSFERASE 22 IU/L (0-55); ALBUMIN 2.6 g/dL (3.5-5.0); ALBUMIN/GLOBULIN RATIO 0.7 (0.8-2.0); ALKALINE PHOSPHATASE 71 IU/L (40-150); ANION GAP 18.9 mmol/L (8-16); CALCIUM 8.8 mg/dL (8.4-10.2); CARBON DIOXIDE 23 mmol/L (22-29); CHLORIDE 91 mmol/L (98-107); CREATININE, SERUM 3.92 mg/dL (0.72-1.25); GLUCOSE 116 mg/dL (74-118); POTASSIUM 4.9 mmol/L (3.5-5.1); SODIUM 128 mmol/L (136-145)
[2022-06-11 07:29] LABS: BLOOD UREA NITROGEN 126 mg/dL (7-26)
[2022-06-11 08:10] LABS: ABG HCO3 27 mmol/L (22-26); ABG PCO2 40 mmHg (35-45); ABG PH 7.45 (7.35-7.45); ABG PO2 68 mmHg (80-105); ABG TCO2 28
[2022-06-11] MEDS: AMIODARONE HCL 200 MG TAB PO SCH (08:32)
[2022-06-11] MEDS: APIXAB 2.5 MG TABLET PO SCH ×2 (08:32→17:00)
[2022-06-11] MEDS: ALLOPURINOL 100 MG TAB PO SCH (08:32)
[2022-06-11] MEDS: ASPIRIN 81 MG CHEW TAB PO SCH (08:32)
[2022-06-11] MEDS: NOREPINEPHRINE 8 MG/D5W 250 ML 250 ML IV SCH (08:37)
[2022-06-11] MEDS ORDERED: LIDOCAINE HCL 4% 50 ML BTL ONE (09:54)
[2022-06-11] MEDS ORDERED: MIDAZOLAM HCL 2 MG/2 ML VIAL IV STA (10:02)
[2022-06-11] MEDS ORDERED: MIDAZOLAM HCL 2 MG/2 ML VIAL ONE (10:11)
[2022-06-11] MEDS: SODIUM CHLORIDE 0.9% 1000ML 1,000 ML IV SCH (10:13)
[2022-06-11] MEDS: ATORVASTATIN 40 MG TAB PO SCH (21:00)
[2022-06-11] MEDS ORDERED: Morphine 4mg INJECTION 4 MG/ML INJ IV PRN (23:45)
[2022-06-11] MEDS: Morphine 2mg Syringe 2 MG/ML SYR IV PRN (23:51)
[2022-06-12] VITALS (43 sets, daily range): BP systolic 48–110; BP diastolic 27–53
[2022-06-12] MEDS: Morphine 2mg Syringe 2 MG/ML SYR IV PRN ×5 (04:00→18:07)
[2022-06-12] MEDS: SODIUM CHLORIDE 0.9% 1000ML 1,000 ML IV SCH (05:30)
[2022-06-12] MEDS: ALLOPURINOL 100 MG TAB PO SCH (08:36)
[2022-06-12] MEDS: APIXAB 2.5 MG TABLET PO SCH ×2 (08:36→16:33)
[2022-06-12] MEDS: ASPIRIN 81 MG CHEW TAB PO SCH (08:36)
[2022-06-12] MEDS: AMIODARONE HCL 200 MG TAB PO SCH (08:36)
[2022-06-12] MEDS: ATORVASTATIN 40 MG TAB PO SCH (21:00)
[2022-06-13] VITALS (17 sets, daily range): BP systolic 28–89; BP diastolic 12–35
== END 2022-06-13 08:45 | disposition expired | DRG 871 ==
LOC: ER 12:53 → ERHOLD 15:31 → ICU 18:18
PROVIDERS: ADMIT Internal Medicine; ATTEND Internal Medicine
PROC: 02HV33Z Insertion of Infusion Device into Superior Vena Cava, Percutaneous Approach (ICD-10-PCS; principal; 2022-06-09)
PROC: 4A133B1 Monitoring of Arterial Pressure, Peripheral, Percutaneous Approach (ICD-10-PCS; 2022-06-09)
PROC: 0BH17EZ Insertion of Endotracheal Airway into Trachea, Via Natural or Artificial Opening (ICD-10-PCS; 2022-06-09)
PROC: 5A1945Z Respiratory Ventilation, 24-96 Consecutive Hours (ICD-10-PCS; 2022-06-09)
PROC: 3E043XZ Introduction of Vasopressor into Central Vein, Percutaneous Approach (ICD-10-PCS; 2022-06-09)
PROC: 0B9C8ZX Drainage of Right Upper Lung Lobe, Via Natural or Artificial Opening Endoscopic, Diagnostic (ICD-10-PCS; 2022-06-10)
PROC: 0B9J8ZX Drainage of Left Lower Lung Lobe, Via Natural or Artificial Opening Endoscopic, Diagnostic (ICD-10-PCS; 2022-06-10)
PROC: 0B9M8ZX Drainage of Bilateral Lungs, Via Natural or Artificial Opening Endoscopic, Diagnostic (ICD-10-PCS; 2022-06-10)
PROC: 0B9G8ZX Drainage of Left Upper Lung Lobe, Via Natural or Artificial Opening Endoscopic, Diagnostic (ICD-10-PCS; 2022-06-10)
PROC: 0B9J8ZX Drainage of Left Lower Lung Lobe, Via Natural or Artificial Opening Endoscopic, Diagnostic (ICD-10-PCS; 2022-06-11)
PROC: 0B9M8ZX Drainage of Bilateral Lungs, Via Natural or Artificial Opening Endoscopic, Diagnostic (ICD-10-PCS; 2022-06-11)
PROC: 0B9G8ZX Drainage of Left Upper Lung Lobe, Via Natural or Artificial Opening Endoscopic, Diagnostic (ICD-10-PCS; 2022-06-11)
PROC: 0B9F8ZX Drainage of Right Lower Lung Lobe, Via Natural or Artificial Opening Endoscopic, Diagnostic (ICD-10-PCS; 2022-06-11)
DX: A41.9 Sepsis, unspecified organism (principal); G92.8 Other toxic encephalopathy; J96.22 Acute and chronic respiratory failure with hypercapnia; J18.9 Pneumonia, unspecified organism; R65.21 Severe sepsis with septic shock; I50.43 Acute on chronic combined systolic (congestive) and diastolic (congestive) heart failure; N17.9 Acute kidney failure, unspecified; I13.0 Hypertensive heart and chronic kidney disease with heart failure and stage 1 through stage 4 chronic kidney disease, or unspecified chronic kidney disease; I48.92 Unspecified atrial flutter; I50.42 Chronic combined systolic (congestive) and diastolic (congestive) heart failure; E11.52 Type 2 diabetes mellitus with diabetic peripheral angiopathy with gangrene; I96 Gangrene, not elsewhere classified; I48.20 Chronic atrial fibrillation, unspecified; Z66 Do not resuscitate; Z51.5 Encounter for palliative care; Z59.6 Low income; Z63.9 Problem related to primary support group, unspecified; D63.1 Anemia in chronic kidney disease; I44.1 Atrioventricular block, second degree; I25.5 Ischemic cardiomyopathy; R00.1 Bradycardia, unspecified; I25.10 Atherosclerotic heart disease of native coronary artery without angina pectoris; E78.5 Hyperlipidemia, unspecified; E11.51 Type 2 diabetes mellitus with diabetic peripheral angiopathy without gangrene; E11.22 Type 2 diabetes mellitus with diabetic chronic kidney disease; N18.30 Chronic kidney disease, stage 3 unspecified; Z20.822 Contact with and (suspected) exposure to COVID-19; Z89.429 Acquired absence of other toe(s), unspecified side; Z87.891 Personal history of nicotine dependence; Z93.1 Gastrostomy status; Z79.82 Long term (current) use of aspirin; Z79.01 Long term (current) use of anticoagulants; T17.990A Other foreign object in respiratory tract, part unspecified in causing asphyxiation, initial encounter
CPT/HCPCS: 31500; 31622; 36415; 36569; 36600; 71045; 76604; 76770; 80048; 80053; 81001; 82550; 82553; 82570; 82805; 83605; 83880; 84156; 84484; 85025; 85610; 85730; 87040; 87086; 87186; 87205; 87335; 93005; 93306; 94002; 94003; 94799; 99252; 99285; J0456; J0692; J0696; J2250; J2270; J7030; J7040; J7050; J7121